=== PATIENT | female | born 1970 | race Caucasian/White ===

== ENCOUNTER 2020-11-16 11:27 | Outpatient (CLI) | payer MEDICARE, SELFPAY ==
--- NOTE | ~2020-11-16 | XR_ITS ---
EXAMINATION: XR abdomen obstructive series DATE: 11/16/2020 12:03 INDICATION: Constipation TECHNIQUE: Upright and supine views of the abdomen were obtained. COMPARISON: 05/28/2014 FINDINGS: There is a moderate volume of colonic stool. No dilated loops of bowel are evident. There i s no free intraperitoneal gas. Punctate left upper quadrant calcifications are consistent with healed granulomatous disease of the spleen. There are phleboliths in the pelvis. The visualized osseous str uctures are unremarkable. The lung bases are clear. IMPRESSION: 1. Moderate volume of colonic stool. Reviewed, dictated and finalized at location B.
== END 2020-11-16 11:28 | disposition home or self-care (01) ==
LOC: CHSIMG 11:32
PROVIDERS: PCP Family Medicine; Visit Provider Nurse Practitioner Family
DX: K59.00 Constipation, unspecified (principal); R33.9 Retention of urine, unspecified
CPT/HCPCS: 74019

== ENCOUNTER 2021-01-08 15:09 | Outpatient (CLI) | payer MEDICARE, SELFPAY ==
[2021-01-08 15:27] LABS: Hematocrit 41.2 % (35.0-49.0); Hemoglobin 13.4 g/dL (12.0-15.0); Mean Corpuscular HGB Conc 32.5 g/dL (32.0-36.0); Mean Corpuscular Hemoglobin 29.9 pg (27.0-31.0); Mean Platelet Volume 9.9 fl (9.2-11.8); Platelet Count Result 351 K/mm3 (150-420); Red Blood Count 4.48 M/mm3 (4.20-5.40); Red Cell Distribution Width 13.8 % (11.6-14.4)
[2021-01-08 16:12] LABS: Ferritin 175 ng/mL (8-252)
== END 2021-01-08 15:10 | disposition home or self-care (01) ==
PROVIDERS: PCP Family Medicine; Visit Provider Family Medicine
DX: G25.81 Restless legs syndrome (principal); M79.661 Pain in right lower leg; M79.662 Pain in left lower leg; M25.579 Pain in unspecified ankle and joints of unspecified foot
CPT/HCPCS: 36415; 82728; 85027; 88305

== ENCOUNTER 2021-10-05 10:05 | Outpatient (CLI) | payer MEDICARE, SELFPAY ==
[2021-10-05 10:27] LABS: Basophils Absolute Auto 0.06 K/mm3 (0.00-0.10); Basophils Percent Auto 0.7 % (0.0-1.0); Eosinophils Absolute Auto 0.33 K/mm3 (0.02-0.50); Eosinophils Percent Auto 4.1 % (1.0-6.0); Hematocrit 40.7 % (35.0-49.0); Hemoglobin 13.3 g/dL (12.0-15.0); Immature Granulocyte Absolute 0.03 K/mm3 (0.00-0.00); Immature Granulocyte Percent A 0.4 % (0.0-0.0); Lymphocytes Absolute Auto 2.41 K/mm3 (1.10-4.50); Mean Corpuscular HGB Conc 32.7 g/dL (32.0-36.0); Mean Corpuscular Hemoglobin 30.2 pg (27.0-31.0); Mean Corpuscular Volume 92.3 fL (78.0-102.0); Mean Platelet Volume 9.9 fl (9.2-11.8); Monocytes Absolute Auto 0.78 K/mm3 (0.10-0.90); Monocytes Percent Auto 9.7 % (2.0-11.0); Neutrophils Absolute Auto 4.4 K/mm3 (1.7-7.2); Neutrophils Percent Auto 55.1 % (50.0-70.0); Platelet Count Result 281 K/mm3 (150-420); Red Blood Count 4.41 M/mm3 (4.20-5.40); Red Cell Distribution Width 13.1 % (11.6-14.4)
[2021-10-05 10:39] LABS: Hemoglobin A1C 5.1 % (<5.7)
[2021-10-05 11:10] LABS: Thyroid Stimulating Hormone Reflex 2.32 u/IU/mL (0.36-3.74)
[2021-10-05 11:13] LABS: Alanine Aminotransferase 20 U/L (14-59); Albumin Level 3.5 g/dL (3.4-5.0); Alkaline Phosphatase 62 U/L (46-116); Anion Gap 6 mmol/L (8-16); Aspartate Amino Transferase 16 U/L (15-37); Bilirubin,Total 0.4 mg/dL (0.00-1.00); Blood Urea Nitrogen 14 mg/dL (7-18); Calcium 9.1 mg/dL (8.5-10.1); Carbon Dioxide 29 mmol/L (21-32); Chloride 105 mmol/L (98-108); Cholesterol 145 mg/dL (0-200); Estimated Glomerular Filt Rate > 60; Glucose 94 mg/dL (70-99); HDL Direct 49 mg/dL (40-60); LDL Cholesterol Calculated 75 mg/dL (<130); Osmolality Calculated 290 mOsm/kg (285-295); Potassium 3.5 mmol/L (3.5-5.1); Sodium 140 mmol/L (136-145); Total Protein 7.6 g/dL (6.4-8.2); Triglycerides 103 mg/dL (0-150); Vitamin B12 563 pg/mL (193-986)
[2021-10-06 09:35] LABS: Folic Acid 12.8 ng/mL (8.6->20)
[2021-10-08 07:58] LABS: Insulin Level Total 3.4 uIU/mL (<=19.6)
[2021-10-09 19:31] LABS: Vitamin D 25 Hydroxy 67 ng/mL (30-100)
[2021-10-09 21:37] LABS: Testosterone Total 19 ng/dL (2-45)
== END 2021-10-05 10:06 | disposition home or self-care (01) ==
LOC: CHSLAB 10:10
PROVIDERS: PCP Family Medicine; Visit Provider Psychiatry & Neurology Psychiatry
DX: E66.01 Morbid (severe) obesity due to excess calories (principal); F31.31 Bipolar disorder, current episode depressed, mild; Z79.899 Other long term (current) drug therapy
CPT/HCPCS: 36415; 80053; 80061; 82306; 82607; 82746; 83036; 83525; 84402; 84403; 84443; 85025

== ENCOUNTER 2021-12-04 09:15 | Outpatient (CLI) | payer MEDICARE, SELFPAY ==
[2021-12-04 10:36] LABS: SARS-CoV-2 RNA PCR Positive (Negative)
== END 2021-12-04 09:16 | disposition home or self-care (01) ==
LOC: CHSLAB 09:18
PROVIDERS: PCP Family Medicine; Visit Provider Family Medicine
DX: U07.1 COVID-19 (principal)
CPT/HCPCS: C9803; U0003; U0005

== ENCOUNTER 2022-01-24 15:03 | Outpatient (CLI) | payer MEDICARE, SELFPAY ==
--- NOTE | ~2022-01-24 | XR_ITS ---
EXAMINATION: XR thoracic spine 3V DATE: 01/24/2022 15:30 INDICATION: Thoracic spine pain TECHNIQUE: AP, lateral and lateral swimmer's views of the thoracic spine were obtained. COMPARISON: None. FINDINGS: There is no fracture, dislocation, or subluxation. There is mild loss of intervertebral dis c space height at multiple levels in the thoracic spine. Small degenerative osteophytes project from the anterior endplates of multiple vertebral bodies. IMPRESSION: 1. Mild thoracic spondylosis. Reviewed, dictated and finalized at location A.
== END 2022-01-24 15:04 | disposition home or self-care (01) ==
LOC: CHSIMG 15:04
PROVIDERS: PCP Family Medicine; Visit Provider Family Medicine
DX: M54.9 Dorsalgia, unspecified (principal)
CPT/HCPCS: 72072

== ENCOUNTER 2022-01-31 07:50 | Outpatient (CLI) | payer MEDICARE, SELFPAY ==
--- NOTE | ~2022-01-31 | US_ITS ---
EXAMINATION: US retroperitoneal comp DATE: 01/31/2022 08:11 INDICATION: Urinary retention TECHNIQUE: Multiple ultrasound grayscale images of the kidneys were obtained. COMPARISON: CT dated 05/28/2014 FINDINGS: The right kidney measures 11.0 x 4.9 x 4.2 cm. The left kidney measures 11.9 x 4.3 x 6.9 cm. The kidn eys demonstrate normal echogenicity. There is no hydronephrosis in either kidney. No stones identifi ed. The bladder is normal with left and right ureteral jets seen on color Doppler. IMPRESSION: 1. Normal kidneys without hydronephrosis. Reviewed, dictated and finalized at location A.
== END 2022-01-31 07:51 | disposition home or self-care (01) ==
LOC: CHSIMG 07:52
PROVIDERS: PCP Family Medicine; Visit Provider Family Medicine
DX: R33.9 Retention of urine, unspecified (principal)
CPT/HCPCS: 76770

== ENCOUNTER 2022-12-11 01:24 | Emergency (ER) | payer MEDICARE, SELFPAY ==
[2022-12-11 01:24] VITALS: BP 147/89; PULSE 109; RESP 16; O2SAT 99
[2022-12-11 01:30] VITALS: BP 138/82; PULSE 99; RESP 18; O2SAT 100
[2022-12-11 01:34] VITALS: BP 147/89; PULSE 110; RESP 16; TEMP 36.6; O2SAT 99
--- NOTE | 2022-12-11 02:11 | ED.FEMALEGU ---
HPI - Female Genitourinary General Chief complaint: Urogenital-Female Stated complaint: trouble urinating Time Seen by Provider: 12/11/22 02:05 Source: patient and RN notes reviewed Mode of arrival: ambulatory Limitations: no limitations History of Present Illness MD elicited complaint: dysuria Location of symptoms: urethra Severity: moderate Vaginal discharge: none Vaginal bleeding: none Urinary symptoms: Dysuria and Difficulty Urinating Exacerbating factors: urination Relieving factors: none Associated symptoms: denies other symptoms Treatment prior to arrival: none Patient : No Related Data Home Medications Medication Instructions Recorded Confirmed lamotrigine 200 mg tablet 200 mg PO .Bedtime 10/03/20 12/11/22 lamotrigine 25 mg tablet 50 mg PO DAILY 10/03/20 12/11/22 montelukast 10 mg tablet 10 mg PO DAILY 10/03/20 12/11/22 Allergies Allergy/AdvReac Type Severity Reaction Status Date / Time methylergonovine Allergy Mild Rash Verified 03/01/22 12:26 Sulfa (Sulfonamide Allergy Mild MIGRAINES Verified 03/01/22 12:26 Antibiotics) Penicillins Allergy Unknown RASH Verified 03/01/22 12:26 [facility] Past Medical History Medical History Depression TEMO (generalized anxiety disorder) Genital herpes Hyperlipidemia Tachycardia Surgical History Surgical History No history of previous surgery Family History Family History Father Heart disease Hypercholesteremia Diabetes mellitus Hypertension Mother Chronic a-fib Diabetes mellitus Social History Social History Smoking status: Never smoker Alcohol intake: never Lack of Transportation: No Lack of Food: Never True Current Housing: I Have Housing Concerned About Future Housing: No Difficulty Paying Gas/Electric Bills: No Difficulty Paying for Meds: No Currently Unemployed: No Education: Associate Degree Difficulty w/ Childcare or Family Care: No Exam Const: General: healthy appearing, no acute distress and alert Nutritional Appearance: well nourished and obese Orientation/consciousness: patient oriented x3 Limitations: no limitations HENMT: Head: normal to inspection Ears: external ears normal Face/Nose/Sinus: Normal external nose present Face and sinus: normal facial exam Mouth: Yes moist mucous membranes Eyes: Conjunctivae: conjunctivae normal Pupils: Equal, round and reactive pupils present EOM: EOMs intact bilaterally Neck: Neck: normal visual inspection Resp: Effort & Inspection: normal respiratory effort Auscultation: clear to auscultation bilaterally Cardio: Rate: regular rate Rhythm: regular rhythm GI: GI Palp: Yes Soft to palpation and No Tenderness to palpation present (GI) Auscultation: normal bowel sounds Back/Spine/Pelvis: Cervical Spine: cervical ROM normal Thoracic/Lumbar Spine: thoraco-lumbar ROM normal Skin: General skin exam: normal color Rashes: no rashes Neuro: General: patient oriented x3, moves all extremities, no focal motor deficits and CN's II-XI intact bilaterally Speech: normal speech Gait exam (Neuro): Normal gait present Extrem: General: normal to inspection and no clubbing, cyanosis or edema Psych: Appearance: grossly normal and well kempt Mental Status: mental status grossly normal Affect: normal affect Attitude: cooperative Course Vital Signs Vital signs: Vital Signs Pulse Rate 109 H 12/11/22 01:24 Respiratory Rate 16 12/11/22 01:24 Blood Pressure 147/89 H 12/11/22 01:24 Pulse Oximetry 99 12/11/22 01:24 Oxygen Delivery Room Air 12/11/22 01:24 Temperature 36.6 C 12/11/22 01:34 Pulse Rate 88 12/11/22 02:37 Respiratory Rate 16 12/11/22 02:37 Blood Pressure 133/84 12/11/22 02:37 Pulse Oximetry 97 12/11/22 02:37 Oxygen
[2022-12-11 02:18] LABS: Add Urine Microscopic? YES; Appearance Urine Clear (Clear); Bilirubin Urine Negative (Negative); Blood Urine 3+ (Negative); Color Urine Light Yellow (Yellow); Glucose Urine UA Negative (Negative); Ketones Urine Negative (Negative); Leukocyte Esterase Ur 1+ LEU/UL (Negative); Nitrate Urine Negative (Negative); Protein Urine Negative (Negative)
[2022-12-11 02:19] LABS: Bacteria Urine 1+ /hpf; RBC Urine >75 /hpf (0-2); Squamous Epithelial Cell Urine Rare /hpf (Few)
--- NOTE | 2022-12-11 02:27 | PC.NURSE ---
present in room for exam
[2022-12-11] MEDS: CEPHALEXIN 500 MG CAPSULE PO (02:34)
[2022-12-11 02:37] VITALS: BP 133/84; PULSE 88; RESP 16; O2SAT 97
--- NOTE | 2022-12-13 13:37 | PC.NURSE ---
urine culture reviewed, no growth
== END 2022-12-11 02:38 | disposition home or self-care (01) ==
PROVIDERS: Emergency Provider Emergency Medicine; PCP Family Medicine
DX: N39.0 Urinary tract infection, site not specified (principal); E78.5 Hyperlipidemia, unspecified; Z79.899 Other long term (current) drug therapy
CPT/HCPCS: 81001; 87086; 99283; A9270

== ENCOUNTER 2023-01-01 13:52 | Outpatient (CLI) | payer MEDICARE, SELFPAY ==
--- NOTE | ~2023-01-01 | XR_ITS ---
Supine and upright views of the abdomen Clinical history: Microhematuria Findings: Bowel gas pattern is nonspecific. No evidence for obstruction or free air. Calcified pelvic phleboliths noted. Calcified splenic granulomas noted. Osseous structures are intact. Impression: No definite renal stone identified. Probable calcified pelvic phleboliths. Reviewed, dictated and finalized at [facility]. Impression: No definite renal stone identified. Probable calcified pelvic phleboliths.
--- NOTE | ~2023-01-01 | CT_ITS ---
CT of the Abdomen and Pelvis: Indication: Microhematuria Technique: 2.5 mm axial scans were obtained through the abdomen and pelvis prior to and following in travenous administration of 130 cc of Omnipaque 350. Dose reduction technique was used on this scan b y utilizing automated exposure control and iterative reconstruction technique. The dose-length produc t (DLP) was 2604.98 mGy-cm. COMPARISON: 05/28/2014 Findings: Scans through the lung bases are unremarkable. The liver, pancreas, gallbladder, adrenals and left kidney are within normal limits. Fat attenuation lesion right kidney measures 1.5 cm in diameter, consistent with angiomyolipoma. Calcified splenic gr anulomas are present. No evidence of aortic aneurysm. No lymphadenopathy. No bowel obstruction or bowel wall thickening. There is no evidence to suggest acute appendicitis. Images through the pelvis were performed. Urinary bladder unremarkable. No adnexal mass seen. No asci nayeli. Impression: 1.5 cm right renal angiomyolipoma. No other significant abnormality of the system is identified. Reviewed, dictated and finalized at location . Impression: 1.5 cm right renal angiomyolipoma. No other significant abnormality of the s ystem is identified.
== END 2023-01-01 13:53 | disposition home or self-care (01) ==
LOC: ANHIMG 13:54
PROVIDERS: PCP Family Medicine; Visit Provider Nurse Practitioner Adult Health
DX: R31.29 Other microscopic hematuria (principal); D17.71 Benign lipomatous neoplasm of kidney
CPT/HCPCS: 74018; 74178; Q9967

== ENCOUNTER 2024-03-31 13:08 | Outpatient (NON) | payer MEDICARE, SELFPAY ==
[2024-03-31 13:21] LABS: Add Urine Microscopic? YES; Appearance Urine Clear (Clear); Bilirubin Urine Negative (Negative); Blood Urine 1+ (Negative); Color Urine Light Yellow (Yellow); Glucose Urine UA Negative (Negative); Ketones Urine Negative (Negative); Leukocyte Esterase Ur 1+ LEU/UL (Negative); Nitrate Urine Negative (Negative); Protein Urine Negative (Negative); Urobilinogen Urine 0.2 mg/dL (0.2-1.0)
[2024-03-31 13:26] LABS: Bacteria Urine 2+ /hpf; RBC Urine 0-2 /hpf (0-2); Renal Epithelial Cells Urine Few /hpf; Squamous Epithelial Cell Urine Few /hpf (Few)
== END 2024-03-31 13:09 | disposition home or self-care (01) ==
LOC: CHSLAB 13:08
PROVIDERS: PCP Nurse Practitioner Family; Visit Provider Nurse Practitioner Family
DX: R39.9 Unspecified symptoms and signs involving the genitourinary system (principal)
CPT/HCPCS: 81001; 87086; 87088

== ENCOUNTER 2024-05-01 15:01 | Emergency (ER) | payer MEDICARE, SELFPAY ==
--- NOTE | ~2024-05-01 | XR_ITS ---
XR chest 1V portable Ordering provider: Henry Farias MD History: 53 years Female with . Cough/Lt. side chest pain . Comparison: None. FINDINGS: MEDIASTINUM: The cardiac silhouette is not enlarged. Device is projected over the left hemithorax. LUNGS: No effusions or pneumothorax. Minimal opacification in the left lung base suggestive of atelec tasis versus pneumonia. OTHER: No free air under the diaphragm. IMPRESSION: Minimal opacification in the left lung base suggestive of atelectasis versus pneumonia. Follow-up adv ised. Reviewed, dictated and finalized at location A. ATRICS PHYSICIAN IMPRESSION: Minimal opacification in the left lung base suggestive of atelectasis versus pn eumonia. Follow-up advised.
[2024-05-01 15:01] VITALS: BP 145/80; PULSE 98; RESP 16; TEMP 36.9; O2SAT 97
--- NOTE | 2024-05-01 15:03 | ED_ITS ---
HPI - URI/Sore Throat General Chief Complaint: Upper Respiratory Infection Stated Complaint: cold symptoms. Time Seen by Provider: 05/01/24 15:03 Source: patient Mode of arrival: ambulatory Limitations: no limitations History of Present Illness HPI Narrative: 3-year-old female with history of bipolar, generalized anxiety disorder, dyslipidemia presents to the ED with a 4 day history of -- fever which resolved spontaneously 3 days ago -- nasal congestion -- cough which is nonproductive -- chest wall pain on coughing or deep breathing no nausea/vomiting. No fever or chills at this time. MD elicited complaint: cough, sore throat and nasal congestion Onset (ago): day(s) ( Four days) Consistency: constant Severity: moderate Description of mucous: clear Able to tolerate fluids by mouth: Yes Exacerbating factors: nothing Relieving factors: nothing Associated symptoms: denies other symptoms, fever, rhinorrhea, nasal congestion, sore throat and cough Treatments prior to arrival: none Related Data Home Medications ?Medication ?Instructions ?Recorded ?Confirmed ?Last Taken ?Type lamotrigine 200 mg tablet 200 mg PO .Bedtime 10/03/20 05/01/24 12/10/22 History lamotrigine 25 mg tablet 50 mg PO DAILY 10/03/20 05/01/24 12/10/22 History montelukast 10 mg tablet 10 mg PO DAILY 10/03/20 05/01/24 Unknown History buspirone 5 mg tablet 5 mg PO TID 07/18/23 05/01/24 Unknown History buspirone 10 mg tablet 10 mg PO BID 03/31/24 05/01/24 Unknown History cholecalciferol (vitamin D3) 25 25 mcg PO DAILY 03/31/24 05/01/24 Unknown History mcg (1,000 unit) capsule escitalopram oxalate 10 mg tablet 10 mg PO DAILY 03/31/24 05/01/24 Unknown History Allergies Allergy/AdvReac Type Severity Reaction Status Date / Time methylergonovine Allergy Mild Rash Verified 05/01/24 15:02 Sulfa (Sulfonamide Allergy Mild MIGRAINES Verified 05/01/24 15:02 Antibiotics) Penicillins Allergy Unknown RASH Verified 05/01/24 15:02 Review of Systems Review of Systems: All systems reviewed & are unremarkable except as noted in HPI and below Constitutional: Constitutional: Reports as per HPI, Reports no additional constitutional complaints and Reports fever(s) Eyes: Eyes: Reports as per HPI and Reports no additional eye complaints ENT: Reports system reviewed and no additional complaints, except as documented, Reports as per HPI, Reports nasal congestion and Reports sore throat Cardiovascular: Cardiovascular: Reports as per HPI and Reports no additional cardiovascular complaints Comments: chest wall pain Respiratory: Respiratory: Reports as per HPI, Reports no additional respiratory complaints and Reports cough Gastrointestinal: Gastrointestinal: Reports as per HPI and Reports no additional gastrointestinal complaints Genitourinary: Genitourinary: Reports no additional female genitourinary complaints and Reports as per HPI Musculoskeletal: Musculoskeletal: Reports no additional musculoskeletal complaints and Reports as per HPI Integumentary/Breasts: Skin/Breast: Reports system reviewed and no additional complaints, except as docu and Reports as per HPI Neurologic: Reports system reviewed and no additional complaints, except as documented and Reports as per HPI Psychiatric: Psychiatric: Reports no additional psychiatric complaints and Reports as per HPI Endocrine: Endocrine: Reports no additional endocrine complaints and Reports as per HPI Hematologic/Lymphatic: Hematologic/Lymphatic: Reports no additional hematologic/lymphatic complaints and Reports as per HPI Allergic/Immunologic: Allergic/Immunologic: Reports no additional allergic/immunologic complaints and Reports as per HPI PMFSH Past Medical History Medical History (Updated 05/01/24 @ 16:35 by Henry Farias MD) TEMO (generalized anxiety disorder) Depression Genital herpes Tachycardia Hyperlipidemia Surgical History Surgical History (Updated 05/01/24 @ 15:14 by Henry Farias MD) Status post VNS (vagus nerve stimulator) placement No history of previous surgery Family History Family History Father Heart disease Hypercholesteremia Diabetes mellitus Hypertension Mother Chronic a-fib Diabetes mellitus Social History Social History Smoking status: Never smoker Alcohol intake: never Lack of Transportation: No Lack of Food: Never True Current Housing: I Have Housing Concerned About Future Housing: No Difficulty Paying Gas/Electric Bills: No Difficulty Paying for Meds: No Currently Unemployed: No Education: Associate Degree Difficulty w/ Childcare or Family Care: No Exam Narrative: afebrile. Oxygen saturation of 97% on room air with a respiratory rate of 16 Const: General: no acute distress Nutritional Appearance: well nourished Orientation/consciousness: patient oriented x3 Limitations: no limitations HENMT: Head: normal to inspection Ears: external ears normal Face/Nose/Sinus: Normal external nose present Face and sinus: normal facial exam Mouth: Yes Normal oral and palatal mucosa present Throat: posterior oropharynx normal Eyes: Conjunctivae: conjunctivae normal Pupils: Equal, round and reactive pupils present EOM: EOMs intact bilaterally Direct Ophthalmoscopy: no photophobia Neck: Neck: normal visual inspection, no lymphadenopathy and no meningeal signs Chest: Chest palpation & inspection: normal inspection of the chest Resp: Effort & Inspection: normal respiratory effort Auscultation: diminished lung sounds Cardio: Rate: regular rate Rhythm: regular rhythm GI: GI Palp: Yes Soft to palpation Auscultation: normal bowel sounds Other: No tenderness/rigidity / rebound. : General: Yes no CVA tenderness Back/Spine/Pelvis: Back: no CVA tenderness Skin: General skin exam: normal color Rashes: no rashes Wounds: no wounds Neuro: General: patient oriented x3, moves all extremities, no meningeal signs, no focal motor deficits and CN's II-XI intact bilaterally Cranial nerves: Yes Nystagmus not present Speech: normal speech Extrem: General: normal to inspection and no clubbing, cyanosis or edema Psych: Mental Status: mental status grossly normal Affect: normal affect Attitude: cooperative Course Course Emergency Course: upper respiratory tract infection COVID- patient would not be a candidate for Paxil would as the symptoms have been there for the past 4-5 days left lower lobe infiltrate/atelectasis Vital Signs Vital signs: Vital Signs Temperature 36.9 C 05/01/24 15:01 Pulse Rate 98 05/01/24 15:01 Respiratory Rate 16 05/01/24 15:01 Blood Pressure 145/80 H 05/01/24 15:01 Pulse Oximetry 97 05/01/24 15:01 Oxygen Delivery Room Air 05/01/24 15:01 Temperature 36.9 C 05/01/24 15:01 Pulse Rate 98 05/01/24 15:01 Respiratory Rate 16 05/01/24 15:01 Blood Pressure 145/80 H 05/01/24 15:01 Pulse Oximetry 97 05/01/24 15:08 Oxygen Delivery Room Air 05/01/24 15:08 MDM - URI/Sore Throat MDM Narrative Medical decision making narrative: COVID left lower lobe atelectasis/ infiltrate-- will treat with Zithromax Differential Diagnosis Differential diagnosis: Likely upper respiratory infection Lab Data Attestation: I reviewed the patient's lab results. Labs: Lab Results 05/01/24 Range/Units 15:15 Influenza A (RT-PCR) Negative (Negative) Influenza B (RT-PCR) Negative (Negative) RSV (RT-PCR) Negative (Negative) SARS-CoV-2 RNA (RT-PCR) Positive A (Negative) Discharge Plan Discharge Clinical Impression: COVID-19 Patient Disposition: Home, Self-Care Condition: Stable Instructions: Antibiotic Form, Pneumonia (ED), COVID-19 (Coronavirus Disease 2019) (ED) Patient Language: Brazilian Prescriptions: New azithromycin [Zithromax] 250 mg tablet See Rx Instructions .ROUTE .COMPLEX Qty: 6 0RF Rx Instructions: For 250 mg dose pack: take 500 mg today (day 1), then 250 mg for 4 days (days 2-5) No Action cholecalciferol (vitamin D3) 25 mcg (1,000 unit) capsule 25 mcg PO DAILY escitalopram oxalate 10 mg tablet 10 mg PO DAILY buspirone 10 mg tablet 10 mg PO BID lamotrigine 25 mg tablet 50 mg PO DAILY lamotrigine 200 mg tablet 200 mg PO .Bedtime montelukast 10 mg tablet 10 mg PO DAILY buspirone 5 mg tablet 5 mg PO TID mometasone 0.1 % cream See Rx Instructions .ROUTE .COMPLEX Qty: 45 0RF Dose Instruction: APPLY TOPICALLY TO AFFECTED AREA DAILY Rx Instructions: APPLY TOPICALLY TO AFFECTED AREA DAILY ropinirole 1 mg tablet See Rx Instructions .ROUTE .COMPLEX Qty: 90 1RF Dose Instruction: TAKE 1 TABLET BY MOUTH EVERYDAY AT BEDTIME Rx Instructions: TAKE 1 TABLET BY MOUTH EVERYDAY AT BEDTIME pravastatin 40 mg tablet See Rx Instructions .ROUTE .COMPLEX Qty: 90 2RF Dose Instruction: TAKE 1 TABLET BY MOUTH EVERY DAY Rx Instructions: TAKE 1 TABLET BY MOUTH EVERY DAY metoprolol succinate 25 mg tablet extended release 24 hr See Rx Instructions .ROUTE .COMPLEX Qty: 45 1RF Dose Instruction: TAKE 1/2 TABLET BY MOUTH DAILY Rx Instructions: TAKE 1/2 TABLET BY MOUTH DAILY norethindrone (contraceptive) 0.35 mg tablet See Rx Instructions .ROUTE .COMPLEX Qty: 84 2RF Dose Instruction: TAKE 1 TABLET BY MOUTH EVERY DAY Rx Instructions: TAKE 1 TABLET BY MOUTH EVERY DAY Follow-up/Referrals: Davis Moscoso DO [Primary Care Provider] - Time of Disposition: 16:35
[2024-05-01 15:08] VITALS: O2SAT 97
[2024-05-01 15:30] VITALS: BP 119/79; PULSE 87; RESP 17; O2SAT 95
[2024-05-01 16:00] VITALS: BP 116/74; PULSE 82; RESP 19; O2SAT 97
[2024-05-01 16:16] LABS: SARS-CoV-2 RNA PCR Positive (Negative)
[2024-05-01 16:22] LABS: Influenza A QL RT-PCR Negative (Negative); Influenza B QL RT-PCR Negative (Negative); RSV RNA, RT-PCR Negative (Negative)
[2024-05-01 16:30] VITALS: BP 106/67; PULSE 79; RESP 17; O2SAT 97
[2024-05-01 16:40] VITALS: BP 111/69; PULSE 83; RESP 17; TEMP 36.9; O2SAT 98
--- OUTSIDE RECORDS SUMMARY | 2024-05-08 23:31 | XMS_ITS ---
Author Organization [facility] [employer] Address [facility] [facility] [address] [address] Care Team Providers Care Earrings Fabricator Name Role Phone Molly, Fritz Unavailable [phone] Social History Sex Assigned At : Social History Observation Description Sex Assigned At Female Encounters Encounter Location Date Provider Diagnosis [facility] [place] [address] [address] 02/09/2024 Fritz Reynolds Plan Of Treatment Next Appt Details Provider Name:Fritz Reynolds , 05/17/2024 10:00:00 AM, [address], [facility] [address], [place], [address], Progress Notes * LASHA SHEIKH VDOB:1970 (53 yo F)Acc No.[id number]:02/09/2024 Patient:?LASHA SHEIKH V Provider:?FRITZ REYNOLDS MD :1970???Age:53 Y???Sex:Female D ate:02/09/2024 Address:[address] , [address], [facility] Subjective: * Chief Complaints: * ??? * Medical History:? Objective: * Vitals:? Assessment: Plan: * Treatment: * Billing Information: * Visit Code:? * Procedure Codes:? * Electronic signature of Jamie Reynolds MD on 05/08/2024 at 11:31 PM THERMODYNAMICS ENGINEER Sign off status: Pending * Provider:?FRITZ REYNOLDS MD Date:?02/08 Generated for Serg ortega/Hari/Rolly on:?05/08/2024 11:31 PM THERMODYNAMICS ENGINEER
--- OUTSIDE RECORDS SUMMARY | 2024-05-08 23:31 | XMS_ITS ---
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 Name Role Phone Fritz Reynolds Unavailable [phone] Allergies Allergen (clinical drug ingredient) Drug/Non Drug Allergy documented on EMR Reaction Allergy Type Onset Date Status Substance with sulfonamide structure and antibacterial mechanism of action (substance) SULFA (SULFONAMIDE ANTIBIOTICS) (uncoded) Unknown Allergy 09/05/2023 Active Substance with penicillin structure and antibacterial mechanism of action (substance) Penicillins Unknown Drug Allergy 09/05/2023 Active REASON FOR VISIT Anxiety, 1 Follow up, MIPS PHQ less than 5 Positive with f/u doc Medications Medication SIG (Take, Route, Frequency, Duration) Notes Start Date End Date Status busPIRone HCl 10 MG 0.5 tablet in the morning, 1 tab at bed time Oral see sign for 90 days Active Metoprolol Succinate ER 25 MG Oral for 90 Days Active Pravastatin Sodium 40 MG Oral for 90 Days Active Escitalopram Oxalate 10 MG 1 tablet Oral Once a day for 90 days Active rOPINIRole HCl 1 MG TAKE 1 TABLET BY SANTIAGO TH EVERYDAY AT BEDTIME for 90 Active lamoTRIgine 200 MG 1 tablet at bedtime Orally Once a day for 90 days Active lamoTRIgine 25 MG 2 tablet in the morn ing Oral once a day for 90 days Active Social History Tobacco Use: Social History Observation Description Date Details (start date - stop date) Never Smoker NA - NA Sex Assigned At : Social History Observation Description Sex Assigned At Female Tobacco Control (Standard) Question Answer Notes Tobacco use: Nonsmoker Vital Signs Blood pressure systolic 103 mm Hg 02/16/20 24 Blood pressure diastolic 71 mm Hg 024 Heart Rate 84 /min 02/16/2024 Height 66.00 in 02/16/2024 Weight 213.4 lbs 02/16/2024 BMI 34.44 kg/m2 02/16/2024 Height-cm 167.64 cm 02/16/2024 Weight-kg 96.8 kg 02/16/2024 Encounters Encounter Location Date Provider Diagnosis [facility] [address] [place] [address] [place] [address] 02/16/2024 Fritz Reynolds Bipolar disorder, current episode depressed, mild F31.31 ; Generalized anxiety disorder F41.1 ; Primary insomnia F51.01 ; Hyperlipidemia, unspecified E78.5 and Family history of coronary artery disease Z82.49 Assessments Encounter Date Diagnosis (ICD Code) Assessment Notes Treatment Notes Treatment Clinical Notes Section Notes 02/16/2024 Bipolar disorder, current episode depressed, mild (ICD-10 - F31.31) Depression - Assessment: Patient reports stable depression but increased anxiety due to family issues, particularly her father's health. Undergoing vagal nerve stimulation therapy with Dr. Haywood. No mood changes noticed yet. Vagal nerve stimulation device implanted on November 23, with monthly adjustments ongoing. - Plan: - Continue escitalopram 10 mg once daily. - Continue lamotrigine 50 mg daily and 200 mg daily, for a total of 250 mg daily. - Follow up with Dr. Haywood for vagal nerve stimulation therapy adjustments and monitoring. - Schedule a follow-up appointment in 3 months or sooner if needed. Anxiety - Assessment: Increased anxiety due to father's health issues and challenges in finding a suitable rehab facility. Currently taking buspirone for anxiety management. - Plan: - Continue buspirone 10 mg, half tablet in the morning and one at bedtime. - Encourage exploring options for father's rehab placement, such as [facility] and [facility]. - Consider referral to therapist or counselor if anxiety does not improve. Tachycardia - Assessment: History of sinus tachycardia, taking metoprolol for management. - Plan: - Continue metoprolol as prescribed. - Monitor for changes in heart rate or blood pressure during follow-up appointments. Family Support and Coping - Assessment: Significant stress due to father's health issues and challenges in finding suitable rehab facility. Father, 78 years old, hospitalized for 41 days due to broken neck, surgery complications, and swallowing difficulties requiring peg tube. - Plan: - Encourage seeking support from family and friends. - Consider referral to social service liaison or rn case mgr for assistance with healthcare system navigation and finding resources for father's care. 02/16/2024 Generalized anxiety disorder (ICD-10 - F41.1) Depression - Assessment: Patient reports stable depression but increased anxiety due to family issues, particularly her father's health. Undergoing vagal nerve stimulation therapy with Dr. Haywood. No mood changes noticed yet. Vagal nerve stimulation device implanted on November 23, with monthly adjustments ongoing. - Plan: - Continue escitalopram 10 mg once daily. - Continue lamotrigine 50 mg daily and 200 mg daily, for a total of 250 mg daily. - Follow up with Dr. Haywood for vagal nerve stimulation therapy adjustments and monitoring. - Schedule a follow-up appointment in 3 months or sooner if needed. Anxiety - Assessment: Increased anxiety due to father's health issues and challenges in finding a suitable rehab facility. Currently taking buspirone for anxiety management. - Plan: - Continue buspirone 10 mg, half tablet in the morning and one at bedtime. - Encourage exploring options for father's rehab placement, such as [facility] and [facility]. - Consider referral to therapist or counselor if anxiety does not improve. Tachycardia - Assessment: History of sinus tachycardia, taking metoprolol for management. - Plan: - Continue metoprolol as prescribed. - Monitor for changes in heart rate or blood pressure during follow-up appointments. Family Support and Coping - Assessment: Significant stress due to father's health issues and challenges in finding suitable rehab facility. Father, 78 years old, hospitalized for 41 days due to broken neck, surgery complications, and swallowing difficulties requiring peg tube. - Plan: - Encourage seeking support from family and friends. - Consider referral to social service liaison or rn case mgr for assistance with healthcare system navigation and finding resources for father's care. 02/16/2024 Primary insomnia (ICD-10 - F51.01) Depression - Assessment: Patient reports stable depression but increased anxiety due to family issues, particularly her father's health. Undergoing vagal nerve stimulation therapy with Dr. Haywood. No mood changes noticed yet. Vagal nerve stimulation device implanted on November 23, with monthly adjustments ongoing. - Plan: - Continue escitalopram 10 mg once daily. - Continue lamotrigine 50 mg daily and 200 mg daily, for a total of 250 mg daily. - Follow up with Dr. Haywood for vagal nerve stimulation therapy adjustments and monitoring. - Schedule a follow-up appointment in 3 months or sooner if needed. Anxiety - Assessment: Increased anxiety due to father's health issues and challenges in finding a suitable rehab facility. Currently taking buspirone for anxiety management. - Plan: - Continue buspirone 10 mg, half tablet in the morning and one at bedtime. - Encourage exploring options for father's rehab placement, such as [facility] and [facility]. - Consider referral to therapist or counselor if anxiety does not improve. Tachycardia - Assessment: History of sinus tachycardia, taking metoprolol for management. - Plan: - Continue metoprolol as prescribed. - Monitor for changes in heart rate or blood pressure during follow-up appointments. Family Support and Coping - Assessment: Significant stress due to father's health issues and challenges in finding suitable rehab facility. Father, 78 years old, hospitalized for 41 days due to broken neck, surgery complications, and swallowing difficulties requiring peg tube. - Plan: - Encourage seeking support from family and friends. - Consider referral to social service liaison or rn case mgr for assistance with healthcare system navigation and finding resources for father's care. 02/16/2024 Hyperlipidemia, unspecified (ICD-10 - E78.5) Depression - Assessment: Patient reports stable depression but increased anxiety due to family issues, particularly her father's health. Undergoing vagal nerve stimulation therapy with Dr. Haywood. No mood changes noticed yet. Vagal nerve stimulation device implanted on November 23, with monthly adjustments ongoing. - Plan: - Continue escitalopram 10 mg once daily. - Continue lamotrigine 50 mg daily and 200 mg daily, for a total of 250 mg daily. - Follow up with Dr. Haywood for vagal nerve stimulation therapy adjustments and monitoring. - Schedule a follow-up appointment in 3 months or sooner if needed. Anxiety - Assessment: Increased anxiety due to father's health issues and challenges in finding a suitable rehab facility. Currently taking buspirone for anxiety management. - Plan: - Continue buspirone 10 mg, half tablet in the morning and one at bedtime. - Encourage exploring options for father's rehab placement, such as [facility] and [facility]. - Consider referral to therapist or counselor if anxiety does not improve. Tachycardia - Assessment: History of sinus tachycardia, taking metoprolol for management. - Plan: - Continue metoprolol as prescribed. - Monitor for changes in heart rate or blood pressure during follow-up appointments. Family Support and Coping - Assessment: Significant stress due to father's health issues and challenges in finding suitable rehab facility. Father, 78 years old, hospitalized for 41 days due to broken neck, surgery complications, and swallowing difficulties requiring peg tube. - Plan: - Encourage seeking support from family and friends. - Consider referral to social service liaison or rn case mgr for assistance with healthcare system navigation and finding resources for father's care. 02/16/2024 Family history of coronary artery disease (ICD-10 - Z82.49) Depression - Assessment: Patient reports stable depression but increased anxiety due to family issues, particularly her father's health. Undergoing vagal nerve stimulation therapy with Dr. Haywood. No mood changes noticed yet. Vagal nerve stimulation device implanted on November 23, with monthly adjustments ongoing. - Plan: - Continue escitalopram 10 mg once daily. - Continue lamotrigine 50 mg daily and 200 mg daily, for a total of 250 mg daily. - Follow up with Dr. Haywood for vagal nerve stimulation therapy adjustments and monitoring. - Schedule a follow-up appointment in 3 months or sooner if needed. Anxiety - Assessment: Increased anxiety due to father's health issues and challenges in finding a suitable rehab facility. Currently taking buspirone for anxiety management. - Plan: - Continue buspirone 10 mg, half tablet in the morning and one at bedtime. - Encourage exploring options for father's rehab placement, such as [facility] and [facility]. - Consider referral to therapist or counselor if anxiety does not improve. Tachycardia - Assessment: History of sinus tachycardia, taking metoprolol for management. - Plan: - Continue metoprolol as prescribed. - Monitor for changes in heart rate or blood pressure during follow-up appointments. Family Support and Coping - Assessment: Significant stress due to father's health issues and challenges in finding suitable rehab facility. Father, 78 years old, hospitalized for 41 days due to broken neck, surgery complications, and swallowing difficulties requiring peg tube. - Plan: - Encourage seeking support from family and friends. - Consider referral to social service liaison or rn case mgr for assistance with healthcare system navigation and finding resources for father's care. Plan Of Treatment Medication Medication Name Sig Start Date Stop Date Notes busPIRone HCl 10 MG 0.5 tablet in the mo rning, 1 tab at bed time Oral see sign for 90 days Escitalopram Oxalate 10 MG 1 tablet Oral Once a day for 90 days lamoTRIgine 200 MG 1 tablet at bedtime Orally Once a day for 90 days lamoTRIgine 25 MG 2 tablet in the morn ing Oral once a day for 90 days Next Appt Details Follow Up: 3 Months, Reason: follow up anxiety,Follow Up Bipolar disorder Provider Name:Fritz Reynolds , 05/17/2024 10:00:00 AM, [address] [facility] [address], [facility] [address], [place], [address], Progress Notes * LASHA SHEIKH VDOB:1970 (53 yo F)Acc No.[id number]:02/16/2024 Patient:?LASHA SHEIKH V Provider:?FRITZ REYNOLDS MD :1970???Age:53 Y???Sex:Female D ate:02/16/2024 Address:[address] [place], [place] [id number] Subjective: * Chief Complaints: * ???Anxiety1 Follow upMIPS PH Q less than 5 Positive with f/u doc * HPI: ???Depression Screening:? Chief Complaint: Difficulty assessing mood and depression due to family issues The note is transcribed using speech recognition software. It is a reflection of a visit with the patient. It might have some inaccuracy, including medication names and transcribing errors, though efforts have been made to correct them. The patient reports ongoing family issues affecting her ability to assess her overall mood and depression. Her father, aged 78, was hospitalized on January 05 with a broken neck. He underwent surgery after a 9-day hospital stay due to being on blood thinners. Post-surgery complications include swallowing difficulties and delirium. Stressors: The patient has been trying to find a suitable rehab facility for her father, which has been challenging due to his swallowing issues and peg tube. This situation has increased her anxiety levels. She reports driving to the hospital daily, causing financial strain. Mental Health: The patient's depression is currently managed with vagal nerve stimulation, with a follow-up scheduled for next month. She is under the care of Dr. Haywood, a psychiatrist monitoring and adjusting the stimulation. The patient is unsure if the stimulation is active or a placebo and hasn't noticed mood changes due to preoccupation with her father's health. The vagal nerve stimulation surgery was performed on November 23, with 10 more months before determining if she's receiving active treatment or placebo. Medication Management: Current medications include: - Escitalopram 10 mg once daily - Lamotrigine 50 mg daily and 200 mg daily (total 250 mg) - Buspirone 10 mg (half tablet in morning, one at bedtime) - Metoprolol for sinus tachycardia (no history of high blood pressure) The patient does not feel any medication changes are necessary at this time. The note is transcribed using speech recognition software. It is a reflection of a visit with the patient. It might have some inaccuracy, including medication names and transcribing errors, though efforts have been made to correct them. ?TEMO-7 (2018 Edition)?Feeling nervous, anxious, or on edge?Nearly every day,?Not being able to stop or control worrying?More than half the days,?Worrying too much about different things?More than hafl the days,?Trouble relaxing Several days,?Being so restless that it is hard to sit still?Several days,?Becoming easily annoyed or irritable?Several days,?Feeling afraid as if something awful might happen?More than half the days,?If you checked any problems, how difficult have they made it for you to do your work, take care of things at home, or get along with other people??Extremely difficult.?[place]-Suicide Severity Rating Scale:?Suicide Risk (CSRS-screener)?in the past one month Have you wished you were or wished you could go to sleep and not wake up??No,?in the past one month Have you actually had any thoughts of killing yourself??No,?Have you ever done anything, started to do anything, or prepared to do anything to end your life??No.?Depression screening:?PHQ-9?Little interest or pleasure in doing things?Nearly every day,?Feeling down, depressed, or hopeless?More than half the days,?Trouble falling or staying asleep, or sleeping too much?More than half the days,?Feeling tired or having little energy?Several days,?Poor appetite or overeating?Nearly every day,?Feeling bad about yourself or that you are a failure, or have let yourself or your family down?Several days,?Trouble concentrating on things, such as reading the newspaper or watching television?Several days,?Moving or speaking so slowly that other people could have noticed; or the opposite, being so fidgety or restless that you have been moving around a lot more than usual?Not at all,?Thoughts that you would be better off or of hurting yourself in some way Not at all,?Total Score?13,?Interpretation?Moderate Depression.?Intervention?Depression Screening Findings?Positve,?Follow-Up for Depression?Emotional support education, Management of mental health treatment,?Suicide Risk Assessment Performed? ,?Additional Evaluation for Depression?Psychiatric interview and evaluation,?Name of the standardized tool used for adult depression screening:?Patient Health Questionnaire (PHQ-9).? * Medical History:? * Surgical History:? * Hospitalization/Major Diagno stic Procedure:? * Social History:?Tobacco Use:?Tobacco Control (Standard)?Tobacco use:?Nonsmoker.?Migrated Social History:?Migrated Social History: Alcohol Intake: None 01/26/2021,Tobacco Years: Never smoker 02/16/2018. ???Miscellaneous:?Advance Care Planning?Are you your own decision-maker?Yes,?Do you have Power of Pulp Piler for Health or Medical??No.? * Medications:?TakingMetoprolo l Succinate ER 25 MG Tablet Extended Release 24 Hour Oral Pravastatin Sodium 40 MG Tablet Oral Escitalopram Oxalate 10 MG Tablet 1 tablet Oral Once a day lamoTRIgine 25 MG Tablet 2 tablet in the morning Oral once a day lamoTRIgine 200 MG Tablet 1 tablet at bedtime Orally Once a day busPIRone HCl 10 MG Tablet 0.5 tablet in the morning, 1 tab at bed time Oral Twice a day rOPINIRole HCl 1 MG Tablet TAKE 1 TABLET BY MOUTH EVERYDAY AT BEDTIME Medication List reviewed and reconciled with the patientTaking Metoprolol Succinate ER 25 MG Tablet Extended Release 24 Hour Oral Taking Pravastatin Sodium 40 MG Tablet Oral Taking Escitalopram Oxalate 10 MG Tablet 1 tablet Oral Once a day Taking lamoTRIgine 25 MG Tablet 2 tablet in the morning Oral once a day Taking lamoTRIgine 200 MG Tablet 1 tablet at bedtime Orally Once a day Taking busPIRone HCl 10 MG Tablet 0.5 tablet in the morning, 1 tab at bed time Oral Twice a day Taking rOPINIRole HCl 1 MG Tablet TAKE 1 TABLET BY MOUTH EVERYDAY AT BEDTIME Medication List reviewed and reconciled with the patient * Allergies:?SULFA (SULFONAMID E ANTIBIOTICS): Allergy - Onset Date 09/05/2023enicillins: Allergy - Onset Date 09/05/2023no[Allergies Verified] Objective: * Vitals:?BP:103/71mm Hg, HR:8 4/min, Wt:213.4lbs, Wt-k.8 kg, Ht: 66.00 in, Ht-cm: 167.64 cm, BMI:34.44Index, Body Surface Area: 2.12. * Examination: ???General Examination: ???Mental Status Examination: Patient reports difficulty in assessing mood due to external stressors. Describes anxiety as a little bit high. No overt signs of altered thought processes or psychosis observed during the interaction. Patient appears coherent and able to provide detailed information about recent family stressors. Additional Objective Information: Patient has vagal nerve stimulation device, last adjusted on November 23. Currently taking escitalopram 10 mg daily, lamotrigine 250 mg daily (50 mg + 200 mg), and buspirone for anxiety. Also taking metoprolol for sinus tachycardia. Follow-up appointments for vagal nerve stimulation scheduled monthly, transitioning to every three months. Assessment: * Assessment: 1.?Bipolar disorder, current episode depressed, mild - F31.31 (Primary)???2.?Generalized anxiety disorder - F41.1???3.?Primary insomnia - F51.01???4.?Hyperlipidemia, unspecified - E78.5???5.?Family history of coronary artery disease - Z82.49??? Depression - Assessment: Patient reports stable depression but increased anxiety due to family issues, particularly her father's health. Undergoing vagal nerve stimulation therapy with Dr. Haywood. No mood changes noticed yet. Vagal nerve stimulation device implanted on November 23, with monthly adjustments ongoing. - Plan: - Continue escitalopram 10 mg once daily. - Continue lamotrigine 50 mg daily and 200 mg daily, for a total of 250 mg daily. - Follow up with Dr. Haywood for vagal nerve stimulation therapy adjustments and monitoring. - Schedule a follow-up appointment in 3 months or sooner if needed. Anxiety - Assessment: Increased anxiety due to father's health issues and challenges in finding a suitable rehab facility. Currently taking buspirone for anxiety management. - Plan: - Continue buspirone 10 mg, half tablet in the morning and one at bedtime. - Encourage exploring options for father's rehab placement, such as [facility] and [facility]. - Consider referral to therapist or counselor if anxiety does not improve. Tachycardia - Assessment: History of sinus tachycardia, taking metoprolol for management. - Plan: - Continue metoprolol as prescribed. - Monitor for changes in heart rate or blood pressure during follow-up appointments. Family Support and Coping - Assessment: Significant stress due to father's health issues and challenges in finding suitable rehab facility. Father, 78 years old, hospitalized for 41 days due to broken neck, surgery complications, and swallowing difficulties requiring peg tube. - Plan: - Encourage seeking support from family and friends. - Consider referral to social service liaison or rn case mgr for assistance with healthcare system navigation and finding resources for father's care. Plan: * Treatment: 2.?Generalized anxiety disor sandy? Refill busPIRone HCl Tablet, 10 MG, 0.5 tablet in the morning, 1 tab at bed time, Oral, see sign, 90 days, 135 tablets, Refills 0.?? * Procedure Codes:?80670 BEHAV ASSMT W/SCORE & DOCD/STAND [id number] VISIT COMPLEXITY INHERENT TO ONGOING CARE RELATED TO A PATIENT'S SINGLE, SERIOUS CONDITION OR A COMPLEX CONDITION * Follow Up:?3 Months (Reason: follow up anxiety,Follow Up Bipolar disorder) * Billing Information: * Visit Code:? 21079 OFFICE OUTPATIENT VISIT 25 MINUTES DETAILED HISTORY AND EXAM/MODERATE MEDICAL DECISION MAKING. * Procedure Codes:? 58815 BEHAV ASSMT W/SCORE & DOCD/STAND INSTRUMENT. G2211 VISIT COMPLEXITY INHERENT TO ONGOING CARE RELATED TO A PATIENT'S SINGLE, SERIOUS CONDITION OR A COMPLEX CONDITION. * Sign off status: Completed true * Provider:?FRITZ REYNOLDS MD Date:?02/15 Generated for Printi jordan/Hari/eTransmitting on:?05/08/2024 11:[address]TER History and Physical Notes * HPI (History of Present Illness) Category Sub-Category Detail Notes Category Not es Depression screening PHQ-9 Little inte rest or pleasure in doing things: Nearly every day Feeling down, depressed, or hopeless: Mo re than half the days Trouble falling or staying a sleep, or sleeping too much: More than half the days Feeling tired or having little energy: S everal days Poor appetite or overeating: Nearly ever y day Feeling bad about yourself o r that you are a failure, or have let yourself or your family down: Several days Trouble concentrating on thi ngs, such as reading the newspaper or watching television: Several days Moving or speaking so slowly that other people could have noticed; or the opposite, being so fidgety or restless that you have been moving around a lot more than usual: Not at all Thoughts that you would be b ayde off or of hurting yourself in some way: Not at all Total Score: 13 Interpretation: Moderate Depression Intervention Depression Screening Findings: P ositve Follow-Up for Depression: Em otional support education, Management of mental health treatment Suicide Risk Assessment Performed: Additional Evaluation for De pression: Psychiatric interview and evaluation Name of the standardized too l used for adult depression screening:: Patient Health Questionnaire (PHQ-9) Depression Screening TEMO-7 (2018 Edition) Feelin g nervous, anxious, or on edge: Nearly every day Not being able to stop or control worryi ng: More than half the days Worrying too much about different things : More than hafl the days Trouble relaxing: Several days Being so restless that it is hard to sit still: Several days Becoming easily annoyed or irritable: Se veral days Feeling afraid as if something awful allen ht happen: More than half the days If you checked any problems, how difficult have they made it for you to do your work, take care of things at home, or get along with other people?: Extremely difficult [place]-Suicide Severity Rating Scale Suicide Risk (CSRS-screener) in the past one month Have you wished you were or wished you could go to sleep and not wake up?: No in the past one month Have y ou actually had any thoughts of killing yourself?: No ?Have you ever done anything , started to do anything, or prepared to do anything to end your life?: No Examination Category Sub-Category Detail Notes Category Not es General Examination Mental Status Examination: Patient reports difficulty in assessing mood due to external stressors. Describes anxiety as a little bit high. No overt signs of altered thought processes or psychosis observed during the interaction. Patient appears coherent and able to provide detailed information about recent family stressors. Additional Objective Information: Patient has vagal nerve stimulation device, last adjusted on November 23. Currently taking escitalopram 10 mg daily, lamotrigine 250 mg daily (50 mg + 200 mg), and buspirone for anxiety. Also taking metoprolol for sinus tachycardia. Follow-up appointments for vagal nerve stimulation scheduled monthly, transitioning to every three months.
--- OUTSIDE RECORDS SUMMARY | 2024-05-08 23:32 | XMS_ITS ---
Author Organization [facility] As Local [facility] Address [address] [place] [address] Care Team Providers Care Kaiawhina Name Role Phone Fritz Reynolds Unavailable [phone] Allergies Allergen (clinical drug ingredient) Drug/Non Drug Allergy documented on EMR Reaction Allergy Type Onset Date Status Substance with sulfonamide structure and antibacterial mechanism of action (substance) SULFA (SULFONAMIDE ANTIBIOTICS) (uncoded) Unknown Allergy 09/05/2023 Active Substance with penicillin structure and antibacterial mechanism of action (substance) Penicillins Unknown Drug Allergy 09/05/2023 Active REASON FOR VISIT Depression Medications Medication SIG (Take, Route, Frequency, Duration) Notes Start Date End Date Status busPIRone HCl 10 MG 0.5 tablet in the morning, 1 tab at bed time Oral Twice a day for 90 days Active lamoTRIgine 25 MG 2 tablet in the morn ing Oral once a day for 90 days Active Metoprolol Succinate ER 25 MG Oral for 90 Days Active lamoTRIgine 200 MG 1 tablet at bedtime Orally Once a day for 90 days Active Pravastatin Sodium 40 MG Oral for 90 Days Active rOPINIRole HCl 1 MG TAKE 1 TABLET BY SANTIAGO TH EVERYDAY AT BEDTIME Oral see sign for 90 days Active Escitalopram Oxalate 10 MG 1 tablet Oral Once a day for 90 days Active rOPINIRole HCl 1 MG Oral for 90 Days Not-Taking Social History Sex Assigned At : Social History Observation Description Sex Assigned At Female Vital Signs Blood pressure systolic 105 mm Hg 12/11/19 24 Blood pressure diastolic 72 mm Hg 024 Heart Rate 75 /min 12/11/2023 Height 66.00 in 12/11/2023 Weight 214.2 lbs 12/11/2023 BMI 34.57 kg/m2 12/11/2023 Height-cm 167.64 cm 12/11/2023 Weight-kg 97.16 kg 12/11/2023 Encounters Encounter Location Date Provider Diagnosis [facility] [address] [place] [address] 12/11/2023 Fritz Reynolds Bipolar disorder, current episode depressed, mild F31.31 ; Generalized anxiety disorder F41.1 ; Primary insomnia F51.01 and Hyperlipidemia, unspecified E78.5 Assessments Encounter Date Diagnosis (ICD Code) Assessment Notes Treatment Notes Treatment Clinical Notes Section Notes 12/11/2023 Bipolar disorder, current episode depressed, mild (ICD-10 - F31.31) Bipolar Disorder - Assessment: The patient recently underwent Vagus Nerve Stimulation (VNS) surgery and is currently in a study to determine its effectiveness. No significant changes in mood have been reported since the activation of the device a couple of days ago. - Plan: - Continue current medications: Escitalopram 10mg daily, Lamotrigine 25mg (2 tablets in the morning) and 200mg (1 tablet at bedtime). - Follow-up with the study team every two weeks for the first two months, then every three to four weeks thereafter. - Monitor for any changes in mood or side effects related to VNS. Anxiety - Assessment: The patient reports a slight increase in anxiety, which may be attributed to recent events. - Plan: - Continue current medication: Buspirone 10mg (half tablet in the morning and 1 at bedtime). - Encourage the patient to discuss any concerns or stressors with their psychiatrist, Dr. Tovar. Postoperative VNS Placement - Assessment: The patient reports no pain or side effects from the VNS surgery, except for a mild cough and slight hoarseness of voice. The surgery date was 11-23. - Plan: - Monitor for any complications or side effects related to the VNS device. - Encourage the patient to report any concerns or issues to their surgical team. Medication Refills - Plan: - Refill prescriptions for Escitalopram, Lamotrigine, and Buspirone as they are running out in two weeks. Follow-up - Plan: - Schedule a follow-up appointment in two months to assess the patient's progress and make any necessary adjustments to their treatment plan. - Encourage the patient to maintain regular appointments with their psychiatrist, Dr. Tovar, and the VNS study team. Depression - Assessment: Patient reports depression remains the same, with no current suicidal thoughts or thoughts about dying or . 12/11/2023 Generalized anxiety disorder (ICD-10 - F41.1) Bipolar Disorder - Assessment: The patient recently underwent Vagus Nerve Stimulation (VNS) surgery and is currently in a study to determine its effectiveness. No significant changes in mood have been reported since the activation of the device a couple of days ago. - Plan: - Continue current medications: Escitalopram 10mg daily, Lamotrigine 25mg (2 tablets in the morning) and 200mg (1 tablet at bedtime). - Follow-up with the study team every two weeks for the first two months, then every three to four weeks thereafter. - Monitor for any changes in mood or side effects related to VNS. Anxiety - Assessment: The patient reports a slight increase in anxiety, which may be attributed to recent events. - Plan: - Continue current medication: Buspirone 10mg (half tablet in the morning and 1 at bedtime). - Encourage the patient to discuss any concerns or stressors with their psychiatrist, Dr. Tovar. Postoperative VNS Placement - Assessment: The patient reports no pain or side effects from the VNS surgery, except for a mild cough and slight hoarseness of voice. The surgery date was 11-23. - Plan: - Monitor for any complications or side effects related to the VNS device. - Encourage the patient to report any concerns or issues to their surgical team. Medication Refills - Plan: - Refill prescriptions for Escitalopram, Lamotrigine, and Buspirone as they are running out in two weeks. Follow-up - Plan: - Schedule a follow-up appointment in two months to assess the patient's progress and make any necessary adjustments to their treatment plan. - Encourage the patient to maintain regular appointments with their psychiatrist, Dr. Tovar, and the VNS study team. Depression - Assessment: Patient reports depression remains the same, with no current suicidal thoughts or thoughts about dying or . 12/11/2023 Primary insomnia (ICD-10 - F51.01) Bipolar Disorder - Assessment: The patient recently underwent Vagus Nerve Stimulation (VNS) surgery and is currently in a study to determine its effectiveness. No significant changes in mood have been reported since the activation of the device a couple of days ago. - Plan: - Continue current medications: Escitalopram 10mg daily, Lamotrigine 25mg (2 tablets in the morning) and 200mg (1 tablet at bedtime). - Follow-up with the study team every two weeks for the first two months, then every three to four weeks thereafter. - Monitor for any changes in mood or side effects related to VNS. Anxiety - Assessment: The patient reports a slight increase in anxiety, which may be attributed to recent events. - Plan: - Continue current medication: Buspirone 10mg (half tablet in the morning and 1 at bedtime). - Encourage the patient to discuss any concerns or stressors with their psychiatrist, Dr. Tovar. Postoperative VNS Placement - Assessment: The patient reports no pain or side effects from the VNS surgery, except for a mild cough and slight hoarseness of voice. The surgery date was 11-23. - Plan: - Monitor for any complications or side effects related to the VNS device. - Encourage the patient to report any concerns or issues to their surgical team. Medication Refills - Plan: - Refill prescriptions for Escitalopram, Lamotrigine, and Buspirone as they are running out in two weeks. Follow-up - Plan: - Schedule a follow-up appointment in two months to assess the patient's progress and make any necessary adjustments to their treatment plan. - Encourage the patient to maintain regular appointments with their psychiatrist, Dr. Tovar, and the VNS study team. Depression - Assessment: Patient reports depression remains the same, with no current suicidal thoughts or thoughts about dying or . 12/11/2023 Hyperlipidemia, unspecified (ICD-10 - E78.5) Bipolar Disorder - Assessment: The patient recently underwent Vagus Nerve Stimulation (VNS) surgery and is currently in a study to determine its effectiveness. No significant changes in mood have been reported since the activation of the device a couple of days ago. - Plan: - Continue current medications: Escitalopram 10mg daily, Lamotrigine 25mg (2 tablets in the morning) and 200mg (1 tablet at bedtime). - Follow-up with the study team every two weeks for the first two months, then every three to four weeks thereafter. - Monitor for any changes in mood or side effects related to VNS. Anxiety - Assessment: The patient reports a slight increase in anxiety, which may be attributed to recent events. - Plan: - Continue current medication: Buspirone 10mg (half tablet in the morning and 1 at bedtime). - Encourage the patient to discuss any concerns or stressors with their psychiatrist, Dr. Tovar. Postoperative VNS Placement - Assessment: The patient reports no pain or side effects from the VNS surgery, except for a mild cough and slight hoarseness of voice. The surgery date was 11-23. - Plan: - Monitor for any complications or side effects related to the VNS device. - Encourage the patient to report any concerns or issues to their surgical team. Medication Refills - Plan: - Refill prescriptions for Escitalopram, Lamotrigine, and Buspirone as they are running out in two weeks. Follow-up - Plan: - Schedule a follow-up appointment in two months to assess the patient's progress and make any necessary adjustments to their treatment plan. - Encourage the patient to maintain regular appointments with their psychiatrist, Dr. Tovar, and the VNS study team. Depression - Assessment: Patient reports depression remains the same, with no current suicidal thoughts or thoughts about dying or . Plan Of Treatment Medication Medication Name Sig Start Date Stop Date Notes busPIRone HCl 10 MG 0.5 tablet in the mo rning, 1 tab at bed time Oral Twice a day for 90 days lamoTRIgine 25 MG 2 tablet in the morn ing Oral once a day for 90 days lamoTRIgine 200 MG 1 tablet at bedtime Orally Once a day for 90 days Escitalopram Oxalate 10 MG 1 tablet Oral Once a day for 90 days Next Appt Details Follow Up: 2 Months, Reason: VNS Patient,Follow Up Bipolar disorder Provider Name:Fritz Reynolds , 05/17/2024 10:00:00 AM, [address], [facility] [address], [place], [address], Progress Notes * LASHA SHEIKH VDOB:1970 (52 yo F)Acc No.[id number]:12/11/2023 Patient:?LASHA SHEIKH V Provider:?FRITZ REYNOLDS MD :1970???Age:52 Y???Sex:Female D ate:12/11/2023 Address:[address], [address] Subjective: * Chief Complaints: * ???Depression * HPI: ???Depression screening:? Chief Complaint: The patient has recently undergone Vagus Nerve Stimulation (VNS) surgery on 11-23 and is participating in a bipolar study. They report no noticeable changes in mood since the device was activated a few days ago. Study Participation and Follow-Up: The patient is scheduled for follow-up appointments with the study team every two weeks for the first two months, then every three to four weeks. They understand it may take up to a year to see the effects of the VNS. Mood and Mental Health: The patient's mood and depression levels remain stable, with no increase in depressive symptoms. They experience some anxiety due to ongoing life events but deny any suicidal thoughts or thoughts about dying. VNS Side Effects: The patient reports no pain or significant side effects from the VNS, except for a mild cough and slight hoarseness, which may or may not be related to the VNS or the weather. Treatment and Medication: The patient is seeing psychiatrist Dr. Tovar as part of their treatment plan. Current medications include Acetalopram 10mg daily, Lamotrigine 25mg (2 tablets in the morning and 200mg 1 tablet at bedtime), and Buspiram 10mg (half tablet in the morning and 1 at bedtime) for anxiety, along with Roprenol prescribed by another doctor. The patient feels okay with their current medication regimen and does not believe any adjustments are necessary at this time. The note is transcribed using speech recognition software. It is a reflection of a visit with the patient. It might have some inaccuracy, including medication names and transcribing errors, though efforts have been made to correct them. ?PHQ-9?Little interest or pleasure in doing things?More than half the days,?Feeling down, depressed, or hopeless?More than half the days,?Trouble falling or staying asleep, or sleeping too much?More than half the days,?Feeling tired or having little energy?More than half the days,?Poor appetite or overeating?More than half the days,?Feeling bad about yourself or that you are a failure, or have let yourself or your family down?More than half the days,?Trouble concentrating on things, such as reading the newspaper or watching television?Not at all,?Moving or speaking so slowly that other people could have noticed; or the opposite, being so fidgety or restless that you have been moving around a lot more than usual?Not at all,?Thoughts that you would be better off or of hurting yourself in some way?Not at all,?Total Score?12,?Interpretation?Moderate Depression.?Depression Screening:?TEMO-7 (2018 Edition)?Feeling nervous, anxious, or on edge?Several days,?Not being able to stop or control worrying?Several days,?Worrying too much about different things?Several days,?Trouble relaxing?Several days,?Being so restless that it is hard to sit still?Several days,?Becoming easily annoyed or irritable?Several days,?Feeling afraid as if something awful might happen?Several days, If you checked any problems, how difficult have they made it for you to do your work, take care of things at home, or get along with other people??Not difficult at all.?Tensas-Suicide Severity Rating Scale:?Suicide Risk (CSRS-screener)?in the past one month Have you wished you were or wished you could go to sleep and not wake up??No,?in the past one month Have you actually had any thoughts of killing yourself??No.?General Follow Up:?External TimelineThe patient had an office visit on December 09, 2023, at the [facility]. The attending healthcare provider was Bree Shay, a Nurse Practitioner. The primary medical concern during this visit was Bipolar II disorder, which is a condition categorized under CMS/HCC (Hierarchical Condition Category). The patient's Bipolar II disorder was the focus of the visit, and it was addressed during the consultation. No other conditions or events such as hospitalizations or additional testing were reported during this visit. * Medical History:? * Surgical History:?Endometr a blate thermal (97684) 4 years ago Endometrial ablation (51737) 05/29/2016VNS implant 11/24/2023 * Hospitalization/Major Diagno stic Procedure:?No Hospitalization History. * Family History:?Maternal Aun t: Depressive disorder , History of attempted suicide , Family history of cancer , Bipolar disorder .?Maternal Uncle: Family history of cancer .?Mother: Family history of cancer , Depressive disorder .?Brother: Substance abuse , Family history of cancer .? * Social History:?Migrated Social History:?Migrated Social History: Alcohol Intake: None 01/26/2021,Tobacco Years: Never smoker 02/16/2018. * Medications:?TakingMetoprolo l Succinate ER 25 MG Tablet Extended Release 24 Hour Oral Pravastatin Sodium 40 MG Tablet Oral Escitalopram Oxalate 10 MG Tablet 1 tablet Oral Once a day rOPINIRole HCl 1 MG Tablet TAKE 1 TABLET BY MOUTH EVERYDAY AT BEDTIME Oral see sign lamoTRIgine 25 MG Tablet 2 tablet in the morning Oral once a day lamoTRIgine 200 MG Tablet 1 tablet at bedtime Orally Once a day busPIRone HCl 10 MG Tablet 0.5 tablet in the morning, 1 tab at bed time Oral Twice a day Taking Metoprolol Succinate ER 25 MG Tablet Extended Release 24 Hour Oral Taking Pravastatin Sodium 40 MG Tablet Oral Taking Escitalopram Oxalate 10 MG Tablet 1 tablet Oral Once a day Taking rOPINIRole HCl 1 MG Tablet TAKE 1 TABLET BY MOUTH EVERYDAY AT BEDTIME Oral see sign Taking lamoTRIgine 25 MG Tablet 2 tablet in the morning Oral once a day Taking lamoTRIgine 200 MG Tablet 1 tablet at bedtime Orally Once a day Taking busPIRone HCl 10 MG Tablet 0.5 tablet in the morning, 1 tab at bed time Oral Twice a day Not-TakingrOPINIRole HCl 1 MG Tablet Oral Medication List reviewed and reconciled with the patientNot-Taking rOPINIRole HCl 1 MG Tablet Oral Medication List reviewed and reconciled with the patient * Allergies:?SULFA (SULFONAMID E ANTIBIOTICS): Allergy - Onset Date 09/05/2023enicillins: Allergy - Onset Date 09/05/2023no[Allergies Verified] Objective: * Vitals:?BP:105/72mm Hg, HR:7 5/min, Wt:214.2lbs, Wt-k.16 kg, Ht: 66.00 in, Ht-cm: 167.64 cm, BMI:34.57Index, Body Surface Area: 2.12. * Examination: ???General Examination: ???Mental Status Examination: Patient reports no changes in mood following VNS activation. Depression levels remain unchanged. Reports slight increase in anxiety, attributed to current circumstances. Denies any suicidal ideation or thoughts of . Physical Examination: Visible scar on neck from recent VNS surgery. Reports a slight cough, uncertain if related to VNS or environmental factors. No reported pain or other side effects from VNS surgery. Reports slight hoarseness of voice. Additional Information: - VNS placement surgery performed on 11-23. - Patient is part of a bipolar study with VNS. - VNS was activated a couple of days ago. - Follow-up appointments scheduled every two weeks for two months, then every three to four weeks. - Current medications: Acetalopram 10mg daily, Lamotrigine 25mg 2 tablets in the morning and 200mg 1 tablet at bedtime, Buspirone 10mg half tablet in the morning and 1 at bedtime, Ropinirole (prescribed by another doctor). - Patient sees psychiatrist Dr. Tovar. Assessment: * Assessment: 1.?Bipolar disorder, current episode depressed, mild - F31.31 (Primary)???2.?Generalized anxiety disorder - F41.1???3.?Primary insomnia - F51.01???4.?Hyperlipidemia, unspecified - E78.5??? Bipolar Disorder - Assessment: The patient recently underwent Vagus Nerve Stimulation (VNS) surgery and is currently in a study to determine its effectiveness. No significant changes in mood have been reported since the activation of the device a couple of days ago. - Plan: - Continue current medications: Escitalopram 10mg daily, Lamotrigine 25mg (2 tablets in the morning) and 200mg (1 tablet at bedtime). - Follow-up with the study team every two weeks for the first two months, then every three to four weeks thereafter. - Monitor for any changes in mood or side effects related to VNS. Anxiety - Assessment: The patient reports a slight increase in anxiety, which may be attributed to recent events. - Plan: - Continue current medication: Buspirone 10mg (half tablet in the morning and 1 at bedtime). - Encourage the patient to discuss any concerns or stressors with their psychiatrist, Dr. Tovar. Postoperative VNS Placement - Assessment: The patient reports no pain or side effects from the VNS surgery, except for a mild cough and slight hoarseness of voice. The surgery date was . - Plan: - Monitor for any complications or side effects related to the VNS device. - Encourage the patient to report any concerns or issues to their surgical team. Medication Refills - Plan: - Refill prescriptions for Escitalopram, Lamotrigine, and Buspirone as they are running out in two weeks. Follow-up - Plan: - Schedule a follow-up appointment in two months to assess the patient's progress and make any necessary adjustments to their treatment plan. - Encourage the patient to maintain regular appointments with their psychiatrist, Dr. Tovar, and the VNS study team. Depression - Assessment: Patient reports depression remains the same, with no current suicidal thoughts or thoughts about dying or . Plan: * Treatment: 2.?Generalized anxiety disor sandy? Refill busPIRone HCl Tablet, 10 MG, 0.5 tablet in the morning, 1 tab at bed time, Oral, Twice a day, 90 days, 135, Refills 0.?? * Procedure Codes:? * Follow Up:?2 Months (Reason: VNS Patient,Follow Up Bipolar disorder) * Billing Information: * Visit Code:? 49174 OFFICE OUTPATIENT VISIT 25 MINUTES DETAILED HISTORY AND EXAM/MODERATE MEDICAL DECISION MAKING. * Procedure Codes:? * Sign off status: Completed true * Provider:?FRITZ REYNOLDS MD Date:?12/10 Generated for Serg ortega/Hari/eTransmitting on:?05/08/2024 11:31 PM SOW MANAGER History and Physical Notes * HPI (History of Present Illness) Category Sub-Category Detail Notes Category Not es Depression screening PHQ-9 Little inte rest or pleasure in doing things: More than half the days Feeling down, depressed, or hopeless: Mo re than half the days Trouble falling or staying a sleep, or sleeping too much: More than half the days Feeling tired or having little energy: M ore than half the days Poor appetite or overeating: More than h anabella the days Feeling bad about yourself o r that you are a failure, or have let yourself or your family down: More than half the days Trouble concentrating on thi ngs, such as reading the newspaper or watching television: Not at all Moving or speaking so slowly that other people could have noticed; or the opposite, being so fidgety or restless that you have been moving around a lot more than usual: Not at all Thoughts that you would be b ayde off or of hurting yourself in some way: Not at all Total Score: 12 Interpretation: Moderate Depression Depression Screening TEMO-7 (2018 Edition) Feelin g nervous, anxious, or on edge: Several days Not being able to stop or control worryi ng: Several days Worrying too much about different things : Several days Trouble relaxing: Several days Being so restless that it is hard to sit still: Several days Becoming easily annoyed or irritable: Se veral days Feeling afraid as if something awful allen ht happen: Several days If you checked any problems, how difficult have they made it for you to do your work, take care of things at home, or get along with other people?: Not difficult at all Tensas-Suicide Severity Rating Scale Suicide Risk (CSRS-screener) in the past one month Have you wished you were or wished you could go to sleep and not wake up?: No in the past one month Have y ou actually had any thoughts of killing yourself?: No Examination Category Sub-Category Detail Notes Category Not es General Examination Mental Status Examination: Patient reports no changes in mood following VNS activation. Depression levels remain unchanged. Reports slight increase in anxiety, attributed to current circumstances. Denies any suicidal ideation or thoughts of . Physical Examination: Visible scar on neck from recent VNS surgery. Reports a slight cough, uncertain if related to VNS or environmental factors. No reported pain or other side effects from VNS surgery. Reports slight hoarseness of voice. Additional Information: - VNS placement surgery performed on 11-23. - Patient is part of a bipolar study with VNS. - VNS was activated a couple of days ago. - Follow-up appointments scheduled every two weeks for two months, then every three to four weeks. - Current medications: Acetalopram 10mg daily, Lamotrigine 25mg 2 tablets in the morning and 200mg 1 tablet at bedtime, Buspirone 10mg half tablet in the morning and 1 at bedtime, Ropinirole (prescribed by another doctor). - Patient sees psychiatrist Dr. Tovar.
== END 2024-05-01 16:40 | disposition home or self-care (01) ==
PROVIDERS: Emergency Provider Internal Medicine Critical Care Medicine; PCP Family Medicine
DX: U07.1 COVID-19 (principal)
CPT/HCPCS: 71045; 87637; 99283